=== PATIENT | female | born 1985 | race Two or more races ===

== ENCOUNTER 2019-07-30 12:10 | Inpatient (IN) | payer OTHER ==
[~2019-07-30 12:10] MED LIST: CITRIC ACID/SODIUM CITRATE 30 ML UNIT-DOSE CUP PO ONE; ELECTROLYTE-148 SOLN 1,000 ML IV SCH
[2019-07-30 12:57] VITALS: BMI 33.9
[2019-07-30 13:29] LABS: BASO % 0.4 % (0-2.0); EOS % 1.3 % (0-4.5); HEMATOCRIT 32.5 % (32.4-45.2); HEMOGLOBIN 10.5 GM/dL (10.7-15.3); LYMPH % 15.9 % (8-40); MCH 26.2 pg (25.7-33.7); MCHC 32.4 g/dl (32.0-36.0); MEAN PLT VOLUME 9.1 fl (7.5-11.1); MONO % 8.5 % (3.8-10.2); NEUT % 73.9 % (42.8-82.8); PLATELET COUNT 205 K/MM3 (134-434); RBC 4.01 M/mm3 (3.60-5.2); RDW 14.8 % (11.6-15.6); WHITE BLOOD COUNT 14.7 K/mm3 (4.0-10.0)
[2019-07-30 13:46] LABS: INR 0.96 (0.83-1.09); PROTHROMBIN TIME (PATIENT) 11.3 SEC (9.7-13.0)
[2019-07-30 13:48] LABS: ACTIVATED PTT 25.1 SECONDS (25.2-36.5)
[2019-07-30 13:57] LABS: BLOOD UREA NITROGEN 6.8 mg/dL (7-18); CALCIUM 8.9 mg/dL (8.5-10.1); CREATININE 0.6 mg/dL (0.55-1.3); POTASSIUM 4.3 mmol/L (3.5-5.1)
[2019-07-30] MEDS: ELECTROLYTE-148 SOLN 1,000 ML IV SCH ×2 (14:10→16:30)
[2019-07-30] MEDS ORDERED: OXYTOCIN 20 UNITS in 0.9% NS 20 UNIT/1,000 ML INFUS.BAG IV ONE (14:41)
--- NOTE | 2019-07-30 14:54 | HP ---
Past Medical History - Primary Care Physician PCP:: Lance Robertson - Admission Chief Complaint: laboing pain History Source: Patient Limitations to Obtaining History: No Limitations - Past Medical History RF ENGINEER: No: Alzheimer's, CVA, Dementia, Migraine, Multiple Sclerosis, Peripheral Neuropathy, Parkinson's, Seizure, Syncope, TIA, Vertigo, Other Cardiovascular: No: AFIB, Aneurysm, Aortic Insufficiency, Aortic Stenosis, CAD, CHF, Deep Vein Thrombosis, HTN, Hyperlipdemia, [place], Mitral Insufficiency, Mitral Stenosis, Murmur, Pulmonary Hypertension, Other Pulmonary: No: Asthma, Bronchitis, Cancer, COPD, O2 Dependent, Pneumonia, Previously Intubated, Pulmonary Embolus, Pulmonary Fibrosis, Sleep Apnea, Other Gastrointestinal: No: Ascites, Cancer, Constipation, Crohn's Disease, Diverticulitis, Diverticulosis, Esophageal Varices, Gastritis, GERD, GI Bleed, Hemorrhoids, Hiatal Hernia, Inflamatory Bowel Disease, Irritable Bowel Disease, Pancreatitis, Peptic Ulcer Disease, Ulcerative Colitis, Other Hepatobiliary: No: Cirrhosis, Cholelithiasis, Cholecystitis, Choledocholithiasis , Hepatitis A, Hepatitis B, Hepatitis C, Other Renal/: No: Renal Failure, Renal Inusuff, BPH, Cancer, Hematuria, Hemodialysis , Neurogenic Bladder, Renal Calculi, UTI, Other Reproductive: No: Ectopic , Endometriosis, Fibroids, PID, Polycystic Ovary Syndrome, Postmenopausal, Other ...: 2 ...Para: 0 ...Spon : 1 ...EDC by Amilcar: 08/19/19 Heme/Onc: No: Anemia, B12 Deficiency, Bleeding Disorder, Cancer, Current Chemotherapy, Current Radiation Therapy, Hemochromatosis, Hypercoaguable State, Myeloproliferative Synd, Sickle Cell Disease, Sickle Cell Trait, Thrombocytopenia, Other Infectious Disease: No: AIDS, C-Diff, Herpes Zoster, HIV, MRSA, STD's, Tuberculosis, VREF, Other Psych: No: Addictions, Anxiety, Bipolar, Depression, Panic, Psychosis, Schizophrenia, Other Musculoskeletal: No: Bursitis, Chronic low back pain, Hemiparesis, Hemiplegia, Osteoarthritis, Paraplegia, Other Rheumatology: No: Fibromyalgia, Gout, Lupus, Rheumatoid Arthritis, Sarcoidosis, Vasculitis, Other ENT: No: Allergic Rhinitis, Sinusitis, Other Endocrine: No: Keenan's Disease, Jairo's Disease, Diabetes Insipidus, Diabetes Mellitus, Hyperparathyroidism, Hyperthyroidism, Hypothyroidism, Osteopenia, SIADH, Other Dermatology: No: Basal Cell, Cellulitis, Eczema, Melanoma, Psoriasis, Squamous Cell, Other - Past Surgical History Hx Myomectomy: No Hx Transabdominal Cerclage: No - Advance Directives Advance Directives: Yes: Living Will - Smoking History Smoking history: Never smoked Have you smoked in the past 12 months: No - Alcohol/Substance Use Hx Alcohol Use: No History of Substance Use: reports: None - Social History Usual Living Arrangement: Yes: With Significant Other Do you think of yourself as: Straight/Heterosexual ADL: Independent History of Recent Travel: No Home Medications - Allergies Allergies/Adverse Reactions: Allergies Allergy/AdvReac Type Severity Reaction Status Date / Time No Known Allergies Allergy Verified 07/30/19 12:44 - Home Medications Home Medications: Ambulatory Orders 19 Tablet 1 tab PO DAILY 07/30/19 Family Medical History Family History: Denies Review of Systems - Review of Systems Constitutional: reports: No Symptoms Eyes: reports: No Symptoms HENT: reports: No Symptoms Neck: reports: No Symptoms Cardiovascular: reports: No Symptoms Respiratory: reports: No Symptoms Gastrointestinal: reports: No Symptoms Genitourinary: reports: No Symptoms Breasts: reports: No Symptoms Reported Musculoskeletal: reports: No Symptoms Integumentary: reports: No Symptoms Neurological: reports: No Symptoms Endocrine: reports: No Symptoms Hematology/Lymphatic: reports: No Symptoms Psychiatric: reports: No Symptoms Pain Intensity: 6 Physical Exam - Maternity Vital Signs: Vital Signs Temperature 98.8 F 07/30/19 12:45 Pulse Rate 86 07/30/19 12:45 Respiratory Rate 20 07/30/19 12:45 Blood Pressure 123/71 07/30/19 12:45 O2 Sat by Pulse Oximetry (%) Constitutional: Yes: Well Nourished, No Distress, Calm Eyes: Yes: WNL, Conjunctiva Clear, EOM Intact HENT: Yes: WNL, Atraumatic, Normocephalic Neck: Yes: WNL, Supple, Trachea Midline Cardiovascular: Yes: WNL, Regular Rate and Rhythm Lungs: Clear to auscultation Breast(s): Yes: WNL - Abdominal Exam/OB Fundal Height: 38 Number of Fetuses: Single Presentation: Vertex, Breech Contractions: Yes Regularity: Regular Intensity: Mod/Strong Monitor Mode: External Heart Rate Location: [facility] Accelerations: Uniform - Vaginal Exam/OB Vaginal Bleediing: Yes, Light Speculum Exam: No Dilatation (cm): 4 Effacement (%): 50 Amniotic Membrane Status: Bulging Station: -1 - Physical Exam Musculoskeletal: Yes: WNL Extremities: Yes: WNL Edema: Yes Integumentary: Yes: WNL Deep Tendon Reflex Grade: Normal +2 ...Motor Strength: WNL Psychiatric: Yes: WNL, Alert, Oriented - Labs Lab Results: CBC, BMP 07/30/19 13:13 07/30/19 13:13 Hemorrhage Risk Assessment - Risk Factors Medium Risk Factors: Yes: Multiple gestation Risk Score: 1 Risk Level: Medium Risk Assessment/Plan twin at 336/7 weeks, has been ace for almost 2 weeks, given steroid, and terbutaline to delay labor, however, pt made cervical change this am, cervix is 4 cm, -1, pt c/o pain leverl of , will deliver pt by c section
[2019-07-30] MEDS ORDERED: morphine SULFATE/PF 0.5 MG/ML (2cc Syringe - QUVA) ONE (15:51)
[2019-07-30] MEDS ORDERED: IBUPROFEN 600 MG TABLET (FP) PO PRN (16:07)
[2019-07-30] MEDS ORDERED: ACETAMINOPHEN 325 MG TABLET (FP) PO PRN (16:07)
[2019-07-30] MEDS ORDERED: ONDANSETRON 4 MG/2 ML VIAL IVPUSH PRN (16:07)
[2019-07-30] MEDS ORDERED: ceFAZolin SODIUM 1 GM VIAL ONE ×2 (16:11)
[2019-07-30] MEDS ORDERED: OXYTOCIN 10 UNITS/ML VIAL ONE ×2 (16:11→16:12)
[2019-07-30] MEDS: OXYTOCIN 20 UNITS in 0.9% NS 20 UNIT/1,000 ML INFUS.BAG IV SCH (17:10)
[2019-07-30] MEDS ORDERED: IBUPROFEN 800 MG/8 ML IJ IVPB PRN (17:24)
[2019-07-30] MEDS ORDERED: oxyCODONE HCL 5 MG TABLET PO PRN ×2 (17:24)
[2019-07-30] MEDS ORDERED: METHYLERGONOVINE MALEATE 0.2 MG/1 ML AMP IM PRN (17:24)
--- NOTE | 2019-07-30 17:36 | OP ---
Operative Note - Note: Operative Date: 07/30/19 Pre-Operative Diagnosis: twin in labor, malpresentation, oligo twin a Operation: primary lt c s Findings: twin b , boy tachypnea , breech double footling breech Post-Operative Diagnosis: Same as Pre-op Surgeon: Lance Robertson Returned Goods Inspector: Edwardo Causey Anesthesiologist/TECHNOLOGY CONSULTANT: Art Perez Anesthesia: Spinal Estimated Blood Loss (mls): 600 (no complications, twin a vertex, twin b breech , oligo twin a, iugr ) Operative Report Dictated: Yes
[2019-07-31 08:48] LABS: BASO % 0.2 % (0-2.0); EOS % 0.7 % (0-4.5); HEMATOCRIT 32.1 % (32.4-45.2); HEMOGLOBIN 10.5 GM/dL (10.7-15.3); MCH 26.1 pg (25.7-33.7); MCHC 32.5 g/dl (32.0-36.0); MEAN CELL VOLUME 80.3 fl (80-96); MEAN PLT VOLUME 9.1 fl (7.5-11.1); MONO % 9.4 % (3.8-10.2); NEUT % 75.7 % (42.8-82.8); PLATELET COUNT 173 K/MM3 (134-434); RDW 14.8 % (11.6-15.6); WHITE BLOOD COUNT 16.4 K/mm3 (4.0-10.0)
--- NOTE | 2019-07-31 09:36 | PN ---
Progress Note (short form) - Note Progress Note: Pot op day#1.S/p C Section under spinal anesthesia with Duramorph uneventful.Patient stable and c/o little pain for which she is on medication.No any anesthesia related problem.Patient DC from the anesthesia care.
[2019-07-31] MEDS: ENOXAPARIN NA (PORCINE) 40 MG/0.4 ML DISP.SYRIN SQ SCH (09:51)
[2019-07-31] MEDS: SIMETHICONE 80 MG TAB.CHEW (FP) PO PRN ×2 (09:51→17:47)
[2019-07-31] MEDS: IBUPROFEN 600 MG TABLET (FP) PO PRN ×3 (09:52→17:47)
[2019-07-31] MEDS: ACETAMINOPHEN 325 MG TABLET (FP) PO PRN ×3 (09:53→17:48)
--- NOTE | 2019-07-31 14:36 | OP ---
DATE OF OPERATION: 07/30/2019 PREOPERATIVE DIAGNOSES: Twin gestation at 33 weeks 6 days , in labor, malpresentation vertex and breech, oligo of twin A, and intrauterine growth restriction of twin A and twin B of 10th percentile. POSTOPERATIVE DIAGNOSES: Twin gestation at 33 weeks 6 days , in labor, malpresentation vertex and breech, oligo of twin A, and intrauterine growth restriction of twin A and twin B of 10th percentile. PROCEDURE: Primary low-transverse section. SURGEON: Lance Robertson MD MASTER SHEET CLERK: DAVE Sanchez ANESTHESIA: Spinal anesthesia. Art Perez MD BLOOD LOSS: About 600 mL. SPECIMEN: Placenta pathology. INDICATION: This is a 33-year-old female patient with a twin gestation and a history of IVF for this . Patient has been followed up in the office and patient was sent to Dr. Hinson over at [facility] for a sonogram because patient's insurance would not pay for Dr. Persaud, perinatologist, consult. The patient was confirmed by [facility], sonogram confirmed to have IUGR less than 10th percentile. The baby was in vertex and breech presentation. Patient came in to the hospital about a week and a half to 2 weeks ago with labor process and patient was ace at that time every 5 minutes and cervix was no change after 2 days. Patient, however, at that time was given a steroid injection, patient also given terbutaline to slow down the labor, betamethasone was given to patient for lung maturity at that time, about a week and a half ago. Patient came in to the office today with complaint about contraction all night and the patient feels a lot of pressure in vagina, feels that baby is coming out. Patient was ace every 5 minutes. Patient was examined in the office. The patient was found to be 4 cm dilated, -1, 0 station of the head, and the patient was ace every 5 minutes, very uncomfortable, pain level 7/10. Patient was sent to the hospital for evaluation and the patient was prepped for the delivery via section. Patient was placed on a monitor, was found ace every 5 minutes and pain level still 7/10 with cervical change compared to 2 weeks ago, so the patient was taken to the OR for section. PROCEDURE: The patient was placed on the operating table in supine position after spinal anesthesia was obtained. The patient's abdomen and pelvis was prepped and draped in the usual sterile manner. Pfannenstiel incision was made. Incision was made through skin and subcutaneous tissue until the fascia was nicked in the midline. The fascia was extended bilaterally. Intraperitoneal cavity was entered. Bladder flap was not created. Low-transverse segment was entered. Baby twin A was delivered from vertex presentation. The baby was handed over to sports book writer after umbilical cord doubly clamped and cut. Umbilical cord blood was obtained. Then we proceeded with twin B procedure. Artificial rupture of membranes was performed. Then baby was delivered from footling breech presentation. Twin B was a baby boy, was smaller, and after umbilical cord doubly clamped and cut, baby twin boy was given to the sports book writer. After that, placenta was removed and uterus closed in a single layer, good hemostasis. Both gutters cleaned. Both ovaries and fallopian tubes were within normal limits. No complication. Patient tolerated the procedure well, draining clear urine. Peritoneum was closed. Fascia was closed. Skin was closed with subcuticular suture. Patient tolerated the procedure well. Draining clear urine. Transferred to recovery room in stable condition. MD SHLOMO MAYS/[id number]
[2019-07-31] MEDS ORDERED: BISACODYL 10 MG SUPP.RECT RC PRN (17:25)
[2019-08-01] MEDS: SENNOSIDES/DOCUSATE COMBO (SENNA PLUS) TABLET (UD) PO PRN ×2 (01:05→22:37)
[2019-08-01] MEDS: IBUPROFEN 600 MG TABLET (FP) PO PRN ×4 (01:05→22:37)
[2019-08-01] MEDS: ACETAMINOPHEN 325 MG TABLET (FP) PO PRN ×4 (01:05→22:38)
[2019-08-01] MEDS: SIMETHICONE 80 MG TAB.CHEW (FP) PO PRN ×3 (01:05→22:37)
[2019-08-01] MEDS: ENOXAPARIN NA (PORCINE) 40 MG/0.4 ML DISP.SYRIN SQ SCH (09:56)
[2019-08-01] MEDS: OXYTOCIN 20 UNITS in 0.9% NS 20 UNIT/1,000 ML INFUS.BAG IV SCH (19:53)
--- NOTE | 2019-08-01 20:34 | PN ---
Post Progress Note Post Day: 2 Type of Delivery: Primary C/S Vital Signs: Vital Signs Temperature 98.6 F 08/01/19 10:00 Pulse Rate 73 08/01/19 10:00 Respiratory Rate 18 08/01/19 10:00 Blood Pressure 114/73 08/01/19 10:00 O2 Sat by Pulse Oximetry (%) 100 07/30/19 18:12 Breast Exam: Yes: Soft Uterus: Yes: Fundus Firm, Fundus below umbilicus, Non-tender Incision: Yes: Dressing dry and intact, Sutures intact Abdomen/GI: Yes: Abdomen soft, Passing flatus, Tolerating PO Lochia: Yes: Serosa Lochia, amount: Small Extremities: Yes: Calves non-tender Perineum: Yes: Intact Activity: Ambulating (oob, ambulating well, no complications ) - Labs Labs: CBC WBC 16.4 K/mm3 (4.0-10.0) H 07/31/19 08:19 RBC 4.00 M/mm3 (3.60-5.2) 07/31/19 08:19 Hgb 10.5 GM/dL (10.7-15.3) L 07/31/19 08:19 Hct 32.1 % (32.4-45.2) L 07/31/19 08:19 MCV 80.3 fl (80-96) 07/31/19 08:19 MCH 26.1 pg (25.7-33.7) 07/31/19 08:19 MCHC 32.5 g/dl (32.0-36.0) 07/31/19 08:19 RDW 14.8 % (11.6-15.6) 07/31/19 08:19 Plt Count 173 K/MM3 (134-434) 07/31/19 08:19 MPV 9.1 fl (7.5-11.1) 07/31/19 08:19 Absolute Neuts (auto) 12.4 K/mm3 (1.5-8.0) H 07/31/19 08:19 Neutrophils % 75.7 % (42.8-82.8) 07/31/19 08:19 Lymphocytes % 14.0 % (8-40) 07/31/19 08:19 Monocytes % 9.4 % (3.8-10.2) 07/31/19 08:19 Eosinophils % 0.7 % (0-4.5) 07/31/19 08:19 Basophils % 0.2 % (0-2.0) 07/31/19 08:19 Nucleated RBC % 0 % (0-0) 07/31/19 08:19
[2019-08-02] MEDS: ENOXAPARIN NA (PORCINE) 40 MG/0.4 ML DISP.SYRIN SQ SCH (10:16)
[2019-08-02] MEDS: IBUPROFEN 600 MG TABLET (FP) PO PRN (16:27)
[2019-08-02] MEDS: SIMETHICONE 80 MG TAB.CHEW (FP) PO PRN (16:27)
[2019-08-02] MEDS: ACETAMINOPHEN 325 MG TABLET (FP) PO PRN (16:28)
--- NOTE | 2019-08-02 21:25 | PN ---
Post Progress Note Post Day: 3 Type of Delivery: Primary C/S Vital Signs: Vital Signs Temperature 98.1 F 08/02/19 10:00 Pulse Rate 100 H 08/02/19 10:00 Respiratory Rate 18 08/02/19 10:00 Blood Pressure 129/66 08/02/19 10:00 O2 Sat by Pulse Oximetry (%) 100 07/30/19 18:12 Breast Exam: Yes: Soft Uterus: Yes: Fundus Firm, Fundus below umbilicus, Non-tender Incision: Yes: Dressing dry and intact, Sutures intact Abdomen/GI: Yes: Abdomen soft, Passing flatus, Tolerating PO Lochia: Yes: Serosa Lochia, amount: Small Extremities: Yes: Calves non-tender Perineum: Yes: Intact Activity: Ambulating (doing well, dc pt home tomorrow ) - Labs Labs: CBC WBC 16.4 K/mm3 (4.0-10.0) H 07/31/19 08:19 RBC 4.00 M/mm3 (3.60-5.2) 07/31/19 08:19 Hgb 10.5 GM/dL (10.7-15.3) L 07/31/19 08:19 Hct 32.1 % (32.4-45.2) L 07/31/19 08:19 MCV 80.3 fl (80-96) 07/31/19 08:19 MCH 26.1 pg (25.7-33.7) 07/31/19 08:19 MCHC 32.5 g/dl (32.0-36.0) 07/31/19 08:19 RDW 14.8 % (11.6-15.6) 07/31/19 08:19 Plt Count 173 K/MM3 (134-434) 07/31/19 08:19 MPV 9.1 fl (7.5-11.1) 07/31/19 08:19 Absolute Neuts (auto) 12.4 K/mm3 (1.5-8.0) H 07/31/19 08:19 Neutrophils % 75.7 % (42.8-82.8) 07/31/19 08:19 Lymphocytes % 14.0 % (8-40) 07/31/19 08:19 Monocytes % 9.4 % (3.8-10.2) 07/31/19 08:19 Eosinophils % 0.7 % (0-4.5) 07/31/19 08:19 Basophils % 0.2 % (0-2.0) 07/31/19 08:19 Nucleated RBC % 0 % (0-0) 07/31/19 08:19
--- NOTE | 2019-08-02 21:28 | DS ---
Physical Exam-SHOP LABORER Vital Signs: Vital Signs Temperature 98.1 F 08/02/19 10:00 Pulse Rate 100 H 08/02/19 10:00 Respiratory Rate 18 08/02/19 10:00 Blood Pressure 129/66 08/02/19 10:00 O2 Sat by Pulse Oximetry (%) 100 07/30/19 18:12 Constitutional: Yes: Well Nourished, No Distress, Calm Eyes: Yes: WNL, Conjunctiva Clear, EOM Intact HENT: Yes: WNL, Atraumatic, Normocephalic Neck: Yes: WNL, Supple, Trachea Midline Cardiovascular: Yes: WNL, Regular Rate and Rhythm Respiratory: Yes: WNL, Regular, CTA Bilaterally Gastrointestinal: Yes: WNL, Normal Bowel Sounds, Soft ...Rectal Exam: Yes: WNL Renal/: Yes: WNL Pelvis: Yes: WNL External Genitalia: Yes: Normal Internal Exam Deferred: Yes Vaginal Exam: Yes: Normal Cervix: Yes: Normal Uterus: Yes: Normal Adnexa: Normal: Bilateral ....Post : Yes: Uterus firm, Uterus non-tender Breast(s): Yes: WNL Musculoskeletal: Yes: WNL Extremities: Yes: WNL Edema: Yes Edema: LUE: 1+, RUE: 1+, LLE: 1+, RLE: 1+ Integumentary: Yes: WNL Wound/Incision: Yes: Clean/Dry, Well Approximated Neurological: Yes: WNL, Alert, Oriented ...Motor Strength: WNL Psychiatric: Yes: WNL, Alert, Oriented Labs: CBC, BMP 07/31/19 08:19 07/30/19 13:13 Delivery - Delivery Section: Primary, Low Flap Transverse Type of Anesthesia: Spinal Episiotomy/Laceration: None EBL (cc): 600 Delivery, Single - [place] Feeding Plan Initial Plan: Exclusive throughout hospitalization Delivery, Multiple Births - Stages of Labor First Stage Date: 07/30/19 Time: 06:00 Delivery Baby "A" Date: 07/30/19 Time: 16:13 Delivery Baby "B" Date: 07/30/19 Time: 16:14 Placenta/Membranes "A" Date: 07/30/19 Time: 16:15 Placenta/Membranes "B" Date: 07/30/19 Time: 16:15 - Condition of Multiple Births 1 (A) Real Estate Assessor/Varnishing Unit Operator Present: Yes Real Estate Assessor: Khoa Tubbs Gender: Female Weight: 2.098 kg Total Hours ROM (HRS/MINS): 0/02 [place] 2 (B) Real Estate Assessor/Varnishing Unit Operator Present: Yes Real Estate Assessor: Khoa Tubbs Gender: Male Weight: 1.956 kg Total Hours ROM (HRS/MINS): 0/02 - [place] 1 (A) 1 Minute Score: 8 1 (A) 5 Minutes Score: 9 2 (B) 1 Minute Score: 8 [place] 2 (B) 5 Minutes Score: 8 Discharge Summary Problems reviewed: Yes Reason For Visit: Procedures: Principal: primary lt c s for twin in labor Other Procedures: uneventful Hospital Course: none Health Concerns: none Plan of Treatment: oob as much as possible Condition: Good - Instructions Diet, Activity, Other Instructions: Physical activity Resume your normal everyday activity as tolerated no heavy lifting or exercise until seen by your surgeon. You may walk unlimited laura of and climb stairs. You may resume driving the car when you feel safe and comfortable behind the wheel. No sexual activity as instructed. Wound care If you have a bandage, leave it on, and keep dry for 48-72 hours. After that time discard the outer bandage. If they are tapes on the skin under the out of bandage leave them in place. They will peel off in the next 7 to 10 days. Do Not Peel them off. You may shower the day after surgery. If there are tapes present on the skin, you may shower over them. Diet There are no dietary restrictions. Eat healthy, high-fiber foods. Drink 6 to 8 glasses of liquid each day. This will assist in keeping your bowels are regular. Pain management You may take Tylenol or acetaminophen or Ibuprofen (for example, Motrin, Advil etc.) from my pain prescription medication is ordered should be taken as prescribed for moderate to severe pain. Call MD for any of the following: call for [address] anton Severe pain not relieved by medication Fever of 101 or higher Excessive bleeding or drainage on dressing Inability to urinate Disposition: HOME - Home Medications Comprehensive Discharge Medication List: Ambulatory Orders 19 Tablet 1 tab PO DAILY 07/30/19 Prescription Drug Monitoring Program (I-STOP) results: I-STOP reviewed and no issues identified
[2019-08-03] MEDS: IBUPROFEN 600 MG TABLET (FP) PO PRN (08:11)
[2019-08-03] MEDS: ACETAMINOPHEN 325 MG TABLET (FP) PO PRN (08:12)
[2019-08-03] MEDS: SIMETHICONE 80 MG TAB.CHEW (FP) PO PRN (08:17)
[2019-08-03 09:14] VITALS: BP 136/76; PULSE 93; TEMP 98
[2019-08-03] MEDS: ENOXAPARIN NA (PORCINE) 40 MG/0.4 ML DISP.SYRIN SQ SCH (10:53)
--- NOTE | 2019-08-05 17:56 | PATH ---
Surgical Pathology Report Patient Name: SIMA CONTRERAS [facility]. Rec. #: [id number] /Age/Gender: 1985 (Age: 33) / F Account: [id number] Location: [facility] OBS/BUFF WHEEL FABRICATOR Taken: 07/30/2019 Received: 08/01/2019 Reported: 08/05/2019 Physicians: Lance Robertson MD Specimen(s) Received TWIN PLACENTA Clinical History twin gestation-labor Final Diagnosis TWIN PLACENTA, SECTION: SEPARATE DISCS TWIN PLACENTA. PLACENTA A, 388 G THIRD TRIMESTER PLACENTA WITH TRIVASCULAR UMBILICAL CORD AND UNREMARKABLE PLACENTAL MEMBRANES. PLACENTA B, 280 G THIRD TRIMESTER PLACENTA WITH TRIVASCULAR UMBILICAL CORD AND UNREMARKABLE PLACENTAL MEMBRANES. Electronically Signed Allyson Colunga M.D. Gross Description Received in formalin labeled "placenta," are twin placentas comprised of 2 separate discs, joined by dividing membranes. There is 1 clamp marking the umbilical cord of placenta "A" and 2 clamps marking the umbilical cord of placenta "B", per the surgeon. Placenta "A" is 388 g and measures 18.5 x 13.0 x 2.3 cm. The attached membranes are thomas, translucent with focal opacities and insert marginally. The umbilical cord measures 33 cm in length and averages 1.4 cm in diameter. The cord inserts eccentrically, 4.5 cm to the nearest margin. No true knots or strictures are identified. Cut surface of the umbilical cord reveals 3 vessels. The surface is elizabeth blue with minimal fibrin deposition and appropriate caliber vessels. The maternal surface is red brown with multifocal defects. Sectioning reveals red-brown, spongy parenchyma. No lesions are identified. Placenta "B" is 280 g and measures 14.0 x 13.0 x 2.0 cm. The attached membranes are thomas, translucent with focal opacities and insert marginally. The umbilical cord measures 24 cm in length and averages 1.2 cm in diameter. The cord inserts eccentrically, 0.5 cm to the nearest margin. No true knots or strictures are identified. Cut surface of the umbilical cord reveals 3 vessels. The surface is elizabeth blue with minimal fibrin deposition and appropriate caliber vessels. The maternal surface is red-brown with multifocal defects. Sectioning reveals red-brown, spongy parenchyma. No lesions are identified. Escrow Clerk sections are submitted in 7 cassettes as follows length 1-placenta "A" membrane roll and umbilical cord; 2-3-full thickness sections of placenta "A"; 4-dividing membranes; 5-placenta "B" membrane rolls and umbilical cord; 6-7-full thickness section of placenta "B". 08/04/2019 [facility]08/04/2019
== END 2019-08-03 13:00 | disposition home or self-care (01) | DRG 540 ==
LOC: JLDR 12:10 → J3W 21:26
PROVIDERS: ADMIT Obstetrics & Gynecology; ATTEND Obstetrics & Gynecology
PROC: 10D00Z1 Extraction of Products of Conception, Low, Open Approach (ICD-10-PCS; principal; 2019-07-30)
DX: O32.1XX0 Maternal care for breech presentation, not applicable or unspecified (principal); O36.5932 Maternal care for other known or suspected poor fetal growth, third trimester, fetus 2; Z3A.33 33 weeks gestation of pregnancy; O30.003 Twin pregnancy, unspecified number of placenta and unspecified number of amniotic sacs, third trimester; O60.14X0 Preterm labor third trimester with preterm delivery third trimester, not applicable or unspecified; O41.03X0 Oligohydramnios, third trimester, not applicable or unspecified; Z37.2 Twins, both liveborn
CPT/HCPCS: 36415; 80048; 85025; 85610; 85730; 86593; 86850; 86900; 86901; 88307-TC